=== PATIENT | male | born 1955 | race Caucasian/White ===

== ENCOUNTER 2021-08-19 19:06 | Inpatient (IN) | payer BC, OTHER ==
[~2021-08-19] VITALS: Ht 172.7 cm; Wt 84.4 kg
[2021-08-19 19:52] VITALS: BP_SYST 183
[2021-08-19 20:52] LABS: CALCIUM 7.3 mg/dL (8.4-11.0); CREATININE 6.01 mg/dL (0.55-1.30); POTASSIUM 4.4 mmol/L (3.5-5.1)
[2021-08-19 20:56] LABS: ALBUMIN 3.4 g/dL (3.4-4.8); TOTAL BILIRUBIN 0.2 mg/dL (0.0-1.0)
[2021-08-19 21:05] LABS: BASOPHILS # (AUTO) 0.1 K/uL (0.0-0.2); EOSINOPHILS # (AUTO) 0.1 K/uL (0.0-0.4); EOSINOPHILS % (AUTO) 2.7 % (0.0-4.0); HEMATOCRIT 30.6 % (36-54); HEMOGLOBIN 10.1 g/dL (14.0-18.0); LYMPHOCYTES # (AUTO) 1.9 K/uL (1.0-5.5); LYMPHOCYTES % (AUTO) 34.5 % (20.5-51.5); MEAN CORPUSCULAR HEMOGLOBIN 27 pg (27-31); MEAN CORPUSCULAR HGB CONC 33 % (32-36); MEAN CORPUSCULAR VOLUME 82 fL (79.0-98.0); MONOCYTES # (AUTO) 0.6 K/uL (0.0-1.0); MONOCYTES % (AUTO) 10.8 % (1.7-9.3); NEUTROPHILS # (AUTO) 2.8 K/uL (1.8-7.7); PLATELET COUNT (AUTO) 221 K/uL (130-430); RED BLOOD CELL COUNT(AUTO) 3.72 MIL/uL (4.2-6.2); RED CELL DISTRIBUTION WIDTH 14.8 % (9.0-15.0); WHITE BLOOD COUNT (AUTO) 5.5 K/uL (4.8-10.8)
[2021-08-19] MEDS ORDERED: DOCUSATE SODIUM 100 MG CAPSULE PO PRN (22:45)
[2021-08-19] MEDS ORDERED: MAGNESIUM SULFATE 50 ML IV PRN (22:45)
[2021-08-19] MEDS ORDERED: cloNIDine HCL 0.1 MG TABLET PO PRN (22:45)
[2021-08-19] MEDS ORDERED: ONDANSETRON HCL 4 MG/2 ML VIAL IVP PRN (22:45)
[2021-08-19] MEDS ORDERED: MUPIROCIN 2% TOPICAL OINTMENT 22 GM NS PRN (22:45)
[2021-08-19] MEDS ORDERED: LORazepam 2 MG/ML VIAL IVP PRN (22:45)
[2021-08-19] MEDS ORDERED: MORPHINE 2 MG/ML INJ. SYRINGE IVP PRN ×2 (22:45)
[2021-08-19] MEDS ORDERED: ZOLPIDEM TARTRATE 5 MG TABLET PO PRN (22:45)
[2021-08-19] MEDS ORDERED: POTASSIUM CHLORIDE 20 MEQ TAB.PRT.SR PO PRN (22:45)
[2021-08-19] MEDS ORDERED: ACETAMINOPHEN 325 MG TABLET PO PRN (22:45)
[2021-08-20] MEDS ORDERED: METOPROLOL SUCCINATE 50 MG TAB.SR.24H (TOPROL XL) PO ONE (03:15)
[2021-08-20] MEDS ORDERED: cloNIDine HCL 0.1 MG TABLET PO ONE (03:15)
[2021-08-20] MEDS: NIFEdipine 30 MG TAB.ER.24 PO SCH ×2 (03:21→09:26)
[2021-08-20] MEDS: NACL 0.9% 1,000 ML IV SCH ×2 (03:30→13:29)
[2021-08-20] MEDS ORDERED: METOPROLOL TARTRATE 25 MG TABLET ONE (03:37)
[2021-08-20] MEDS ORDERED: METOPROLOL TARTRATE 50 MG TABLET PO ONE (03:45)
[2021-08-20 05:36] LABS: HEMATOCRIT 26.6 % (36-54); HEMOGLOBIN 8.8 g/dL (14.0-18.0); MEAN CORPUSCULAR HEMOGLOBIN 28 pg (27-31); WHITE BLOOD COUNT (AUTO) 5.5 K/uL (4.8-10.8)
[2021-08-20 05:40] LABS: BASOPHILS # (AUTO) 0.1 K/uL (0.0-0.2); BASOPHILS % (AUTO) 1.2 % (0.0-2.0); EOSINOPHILS # (AUTO) 0.1 K/uL (0.0-0.4); EOSINOPHILS % (AUTO) 2.4 % (0.0-4.0); MEAN CORPUSCULAR HGB CONC 33 % (32-36); MEAN CORPUSCULAR VOLUME 83 fL (79.0-98.0); MONOCYTES # (AUTO) 0.5 K/uL (0.0-1.0); MONOCYTES % (AUTO) 9.8 % (1.7-9.3); NEUTROPHILS # (AUTO) 2.8 K/uL (1.8-7.7); NEUTROPHILS % (AUTO) 50.6 % (40.0-70.0); PLATELET COUNT (AUTO) 186 K/uL (130-430); RED BLOOD CELL COUNT(AUTO) 3.21 MIL/uL (4.2-6.2); RED CELL DISTRIBUTION WIDTH 14.4 % (9.0-15.0)
[2021-08-20 05:49] LABS: CREATININE 6.13 mg/dL (0.55-1.30); POTASSIUM 4.3 mmol/L (3.5-5.1)
[2021-08-20 05:52] LABS: CALCIUM 6.2 mg/dL (8.4-11.0)
[2021-08-20] MEDS ORDERED: HEPARIN SODIUM,PORCINE 5,000 UNITS/ML VIAL SUBCUT SCH (09:00)
[2021-08-20] MEDS ORDERED: APIX5TAB PO (09:05)
[2021-08-20] MEDS ORDERED: FINA5TAB3 PO (09:05)
[2021-08-20] MEDS ORDERED: OMEP10CA5 PO (09:05)
[2021-08-20] MEDS ORDERED: CAT1PAT TD (09:05)
[2021-08-20] MEDS ORDERED: ASPI-859 PO (09:05)
[2021-08-20] MEDS ORDERED: METO50TA7 PO (09:05)
[2021-08-20 10:29] LABS: INR 1.2 (0.80-1.20)
[2021-08-20 21:00] VITALS: BP_SYST 161
[2021-08-20] MEDS: APIXABAN 2.5 MG TABLET PO SCH (21:00)
[2021-08-20] MEDS ORDERED: LOPERAMIDE HCL 2 MG CAPSULE PO PRN (21:45)
[2021-08-20] MEDS: METOPROLOL SUCCINATE 50 MG TAB.SR.24H (TOPROL XL) PO SCH (22:24)
[2021-08-21 07:46] LABS: BASOPHILS # (AUTO) 0.1 K/uL (0.0-0.2); BASOPHILS % (AUTO) 1.3 % (0.0-2.0); EOSINOPHILS # (AUTO) 0.1 K/uL (0.0-0.4); EOSINOPHILS % (AUTO) 1.8 % (0.0-4.0); HEMATOCRIT 26.8 % (36-54); HEMOGLOBIN 8.9 g/dL (14.0-18.0); LYMPHOCYTES # (AUTO) 1.9 K/uL (1.0-5.5); LYMPHOCYTES % (AUTO) 36.8 % (20.5-51.5); MEAN CORPUSCULAR HEMOGLOBIN 28 pg (27-31); MEAN CORPUSCULAR HGB CONC 33 % (32-36); MEAN CORPUSCULAR VOLUME 83 fL (79.0-98.0); MONOCYTES # (AUTO) 0.5 K/uL (0.0-1.0); MONOCYTES % (AUTO) 8.8 % (1.7-9.3); NEUTROPHILS # (AUTO) 2.7 K/uL (1.8-7.7); NEUTROPHILS % (AUTO) 51.3 % (40.0-70.0); PLATELET COUNT (AUTO) 191 K/uL (130-430); RED BLOOD CELL COUNT(AUTO) 3.23 MIL/uL (4.2-6.2); RED CELL DISTRIBUTION WIDTH 14.2 % (9.0-15.0); WHITE BLOOD COUNT (AUTO) 5.2 K/uL (4.8-10.8)
[2021-08-21 07:58] LABS: CALCIUM 6.2 mg/dL (8.4-11.0); CREATININE 5.57 mg/dL (0.55-1.30); POTASSIUM 4.4 mmol/L (3.5-5.1)
[2021-08-21 08:00] VITALS: BP_SYST 141
[2021-08-21] MEDS: METOPROLOL SUCCINATE 50 MG TAB.SR.24H (TOPROL XL) PO SCH ×2 (09:46→20:53)
[2021-08-21] MEDS: APIXABAN 2.5 MG TABLET PO SCH ×2 (09:48→20:54)
[2021-08-21] MEDS: NIFEdipine 30 MG TAB.ER.24 PO SCH (09:48)
[2021-08-21] MEDS: ASPIRIN 81 MG TABLET(ECOTRIN) PO SCH (09:48)
[2021-08-21] MEDS: NACL 0.9% 1,000 ML IV SCH ×3 (09:50→20:54)
[2021-08-21] MEDS: FINASTERIDE 5 MG TABLET (PROSCAR) PO SCH (11:30)
[2021-08-21 12:00] VITALS: BP_SYST 137
[2021-08-21] MEDS ORDERED: PANTOPRAZOLE SODIUM 40 MG TAB PO ONE (14:30)
[2021-08-21 16:00] VITALS: BP_SYST 132
[2021-08-21] MEDS ORDERED: PSYL0.4C2 PO (16:37)
[2021-08-21 20:00] VITALS: BP_SYST 144
[2021-08-22] VITALS: BP_SYST 138
[2021-08-22 08:00] VITALS: BP_SYST 151
[2021-08-22] MEDS: ASPIRIN 81 MG TABLET(ECOTRIN) PO SCH (08:13)
[2021-08-22] MEDS: FINASTERIDE 5 MG TABLET (PROSCAR) PO SCH (08:13)
[2021-08-22] MEDS: NIFEdipine 30 MG TAB.ER.24 PO SCH (08:14)
[2021-08-22] MEDS: APIXABAN 2.5 MG TABLET PO SCH (08:15)
[2021-08-22 08:20] LABS: BASOPHILS # (AUTO) 0.1 K/uL (0.0-0.2); EOSINOPHILS # (AUTO) 0.2 K/uL (0.0-0.4); EOSINOPHILS % (AUTO) 2.7 % (0.0-4.0); HEMATOCRIT 27.4 % (36-54); LYMPHOCYTES # (AUTO) 2.4 K/uL (1.0-5.5); LYMPHOCYTES % (AUTO) 37.3 % (20.5-51.5); MEAN CORPUSCULAR HEMOGLOBIN 27 pg (27-31); MEAN CORPUSCULAR HGB CONC 33 % (32-36); MEAN CORPUSCULAR VOLUME 83 fL (79.0-98.0); MONOCYTES # (AUTO) 0.4 K/uL (0.0-1.0); MONOCYTES % (AUTO) 6.7 % (1.7-9.3); NEUTROPHILS # (AUTO) 3.4 K/uL (1.8-7.7); NEUTROPHILS % (AUTO) 52.3 % (40.0-70.0); PLATELET COUNT (AUTO) 197 K/uL (130-430); RED BLOOD CELL COUNT(AUTO) 3.31 MIL/uL (4.2-6.2); RED CELL DISTRIBUTION WIDTH 14.3 % (9.0-15.0); WHITE BLOOD COUNT (AUTO) 6.4 K/uL (4.8-10.8)
[2021-08-22] MEDS: METOPROLOL SUCCINATE 50 MG TAB.SR.24H (TOPROL XL) PO SCH (08:29)
[2021-08-22] MEDS: NACL 0.9% 1,000 ML IV SCH (08:37)
[2021-08-22 08:42] LABS: CREATININE 5.28 mg/dL (0.55-1.30); POTASSIUM 4.4 mmol/L (3.5-5.1)
[2021-08-22 08:59] LABS: CALCIUM 6.2 mg/dL (8.4-11.0)
[2021-08-22] MEDS ORDERED: PANTOPRAZOLE SODIUM 40 MG TAB PO SCH (09:00)
[2021-08-22 12:00] VITALS: BP_SYST 156
[2021-08-22 16:00] VITALS: BP_SYST 159
[2021-08-22 16:46] VITALS: BP_SYST 159
== END 2021-08-22 18:10 | disposition home or self-care (01) | DRG 391 ==
LOC: SED 19:06 → STU 22:42
PROVIDERS: ADMIT General Practice; ATTEND General Practice
DX: K57.90 Diverticulosis of intestine, part unspecified, without perforation or abscess without bleeding (principal); N17.0 Acute kidney failure with tubular necrosis; U07.1 COVID-19; I12.0 Hypertensive chronic kidney disease with stage 5 chronic kidney disease or end stage renal disease; N18.5 Chronic kidney disease, stage 5; K21.9 Gastro-esophageal reflux disease without esophagitis; D64.9 Anemia, unspecified; Z79.899 Other long term (current) drug therapy; Z79.82 Long term (current) use of aspirin
CPT/HCPCS: 36415; 76376; 76770; 80048; 80053; 83036; 83605; 83690; 83735; 85025; 85610-TC; 85730-TC; 87040; 99285; G0378; J1644; J2270; J2405